=== PATIENT | male | born 1965 | race African-American/Black ===

== ENCOUNTER 2020-07-08 02:41 | Emergency (ER) | payer MEDICAID ==
[~2020-07-08] VITALS: Ht 172.7 cm; Wt 80.0 kg
[2020-07-08] MEDS ORDERED: LEVETIRACETAM 500MG TABLET PO ONE (03:00)
[2020-07-08 05:03] VITALS: BP 142/82
== END 2020-07-08 05:15 | disposition home or self-care (01) ==
LOC: ER 02:41
DX: R56.9 Unspecified convulsions (principal); S01.512A Laceration without foreign body of oral cavity, initial encounter; I10 Essential (primary) hypertension; Z91.14 Patient's other noncompliance with medication regimen; X58.XXXA Exposure to other specified factors, initial encounter; Y93.89 Activity, other specified; Y92.89 Other specified places as the place of occurrence of the external cause; Y99.8 Other external cause status
CPT/HCPCS: 82962; 93005; 99283